=== PATIENT | male | born 1980 | race Caucasian/White ===

== ENCOUNTER 2019-01-31 16:16 | Emergency (ER) | payer MEDICAID, OTHER ==
[2019-01-31 16:33] VITALS: TEMP 98.4
--- NOTE | 2019-01-31 18:53 | RAD ---
HISTORY: chest pain (right sided) COMPARISON: None available TECHNIQUE: Chest, one view. FINDINGS: Exaggeration limited by habitus and hypoinflation. LUNGS: Subsegmental atelectasis, bilateral lung bases. No focal consolidation. Please note that chest x-ray has limited sensitivity for the detection of pulmonary masses. PLEURA: No significant pleural effusion identified. No definite pneumothorax . CARDIOVASCULAR: Borderline cardiomegaly. No significant atherosclerotic calcification present. OSSEOUS STRUCTURES: No acute osseous abnormality identified. VISUALIZED UPPER ABDOMEN: Unremarkable. OTHER FINDINGS: None. IMPRESSION: Bibasilar subsegmental atelectasis. Borderline cardiomegaly.
[2019-01-31 19:09] VITALS: PULSE 77
--- NOTE | 2019-01-31 19:38 | C.PDOC ---
History Of Present Illness 38 year old male presents to the ED c/o right shoulder pain that has been on and off for the past month. Patient reports pain sometimes radiates into his right chest are and right sided neck, patient also states when pain radiates he has lightheadedness. 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 Patient has not tried any medication. Patient denies fever, chills, headache, syncope, left sided CP, injury, fall, trauma, weakness, numbness. Time Seen by Provider: 01/31/19 17:29 Chief Complaint (Nursing): Chest Pain History Per: Patient History/Exam Limitations: no limitations Onset/Duration Of Symptoms: Other (on/off months) Current Symptoms Are (Timing): Still Present Quality: "Pain" Exacerbating Factors: Movement Recent travel outside of the [place]: No Additional History Per: Patient Past Medical History Reviewed: Historical Data, Nursing Documentation, Vital Signs Vital Signs: Last Vital Signs Temp 98.4 F 01/31/19 16:22 Pulse 80 01/31/19 17:38 Resp 20 01/31/19 17:30 BP 129/87 01/31/19 17:30 Pulse Ox 96 01/31/19 16:22 - Medical History PMH: No Chronic Diseases Surgical History: No Surg Hx Family History: States: Unknown Family Hx - Social History Hx Alcohol Use: No Hx Substance Use: No - Immunization History Hx Tetanus Toxoid Vaccination: No Hx Influenza Vaccination: No Hx Pneumococcal Vaccination: No Review Of Systems Constitutional: Negative for: Fever, Chills Eyes: Negative for: Vision Change Cardiovascular: Positive for: Chest Pain. Negative for: Palpitations Respiratory: Negative for: Cough, Shortness of Breath Gastrointestinal: Negative for: Nausea, Vomiting, Abdominal Pain Musculoskeletal: Positive for: Neck Pain, Shoulder Pain Skin: Negative for: Rash Neurological: Negative for: Weakness, Numbness, Headache, Dizziness Physical Exam - Physical Exam Appears: Non-toxic, No Acute Distress Skin: Normal Color, Warm, Dry Head: Atraumatic, Normacephalic Eye(s): bilateral: Normal Inspection Oral Mucosa: Moist Neck: Normal ROM, No Midline Cervical Tenderness, Supple Chest: Symmetrical Cardiovascular: Rhythm Regular Respiratory: Normal Breath Sounds, No Rales, No Rhonchi, No Wheezing Gastrointestinal/Abdominal: Soft, No Tenderness, No Guarding, No Rebound Back: No Vertebral Tenderness Extremity: Normal ROM, Tenderness (right shoulder overlying the upper trapezius muscle), No Swelling Pulses: Left Radial: Normal, Right Radial: Normal Neurological/Psych: Oriented x3, Normal Speech, Normal Cognition Gait: Steady ED Course And Treatment O2 Sat by Pulse Oximetry: 96 (ON RA) Pulse Ox Interpretation: Normal - Radiology CXR: Read By Radiologist CXR Interpretation: Yes: Other (Bibasilar subsegmental atelectasis. Borderline cardiomegaly.) Medical Decision Making Medical Decision Making: Plan: * Toradol 30 mg IM * Valium 5 mg PO * EKG * CXR Patient re-evaluated after medications, pain has improved. Advised taking NSAIDs and muscle relaxants at home for shoulder spasm. Rx written for ibuprofen and for valium. Patient stable for discharge home. Disposition - Disposition Disposition: HOME/ ROUTINE Disposition Time: 20:20 Condition: STABLE Additional Instructions: JORDANA SANCHEZ, thank you for letting us take care of you today. Your provider was Ana Suarez MD and you were treated for CHEST PAIN/RT ARM NUMBNESS/NECK PAIN. The emergency medical care you received today was directed at your acute symptoms. If you were prescribed any medication, please fill it and take as directed. It may take several days for your symptoms to resolve. Return to the Emergency Department if your symptoms worsen, do not improve, or if you have any other problems. Please contact your doctor or call one of the physicians/clinics you have been referred to that are listed on the Patient Visit Information form that is included in your discharge packet. Bring any paperwork you were given at discharge with you along with any medications you are taking to your follow up visit. Our treatment cannot replace ongoing medical care by a primary care provider outside of the emergency department. Thank you for allowing the [facility] team to be part of your care today. If you had an X-Ray or CT scan: A Radiologist will review the ED reading if any change in treatment is needed we will contact you. If you had a blood, urine, or wound culture: It will take several days for the results, if any change in treatment is needed we will contact you. If you had an STI test: It will take 48 hours for the results. Please call after 1 week if you have not heard back. Prescriptions: diaZEpam [Valium] 5 mg PO TID PRN #9 tab PRN Reason: Muscle Spasm Ibuprofen [Motrin Tab] 600 mg PO TID PRN #14 tab PRN Reason: Pain, Moderate (4-7) Instructions: Muscle Spasms (DC) Forms: [facility] (Bulgarian) - Clinical Impression Clinical Impression: Chest pain, Muscle spasm of right shoulder - Scribe Statement The provider has reviewed the documentation as recorded by the Scribe Afshin Lubin All medical record entries made by the Scribe were at my direction and personally dictated by me. I have reviewed the chart and agree that the record accurately reflects my personal performance of the history, physical exam, medical decision making, and the department course for this patient. I have also personally directed, reviewed, and agree with the discharge instructions and disposition.
[2019-01-31 20:08] VITALS: BP 107/75; RESP 65
[2019-02-01 00:16] VITALS: O2SAT 96
--- NOTE | 2019-02-01 16:57 | CARD ---
APPROVED REPORT Date of service: 01/31/2019 EKG Measurement Heart [id number] <Conclusion> Normal sinus rhythm Normal ECG
== END 2019-01-31 20:23 | disposition home or self-care (01) ==
LOC: C.ER 16:16
DX: R07.9 Chest pain, unspecified (principal); M62.838 Other muscle spasm
CPT/HCPCS: 71045; 82948; 93005; 96372; 99285; J1885